=== PATIENT | male | born 1995 | race Caucasian/White ===

== ENCOUNTER 2018-06-24 13:53 | Emergency (ER) | payer OTHER ==
[~2018-06-24] VITALS: Ht 180.3 cm; Wt 77.1 kg
[2018-06-24 14:00] VITALS: BP 103/70
--- NOTE | 2018-06-24 15:30 | NUR ---
PT AMBULATES TO BED 11
--- NOTE | 2018-06-24 15:40 | NUR ---
C/O FEVER, RUNNY NOSE X WEEKS. C/O LUMP RIGHT NECK X 1 WEEK. MED HX: DENIES MED: NONE
[2018-06-24 16:00] VITALS: BP 103/70
== END 2018-06-24 16:00 | disposition home or self-care (01) ==
LOC: MED 13:53
DX: R19.6 Halitosis (principal)
CPT/HCPCS: 99283